=== PATIENT | male | born 1950 | race Caucasian/White ===

== ENCOUNTER 2019-01-18 09:04 | Observation (INO) | payer MEDICARE, OTHER ==
[~2019-01-18] VITALS: Ht 180.3 cm; Wt 80.0 kg
[~2019-01-18 09:04] MED LIST: ACET-2615 PO; ASPI-1 PO; ATOR20TA66 PO; CITA20TA28 PO; DULO-31 PO; GABA-532 PO
[2019-01-18] MEDS ORDERED: normal saline 1000ml 1,000 ML IV ONE (09:35)
[2019-01-18] MEDS ORDERED: proCHLORperazine 10 MG/2 ml inj IV ONE (09:35)
[2019-01-18 10:09] LABS: BASOPHILS # (AUTO) 0.1 X10'3 (0-0.2); MONOCYTES # (AUTO) 1.9 X10'3 (0-0.9)
[2019-01-18 10:10] LABS: BASOPHILS % (AUTO) 0.4 % (0-1); EOSINOPHILS % (AUTO) 0 % (0-6); LYMPHOCYTES # (AUTO) 0.8 X10'3 (1.1-4.8); LYMPHOCYTES % (AUTO) 2.9 % (21-51); MEAN CORPUSCULAR HEMOGLOBIN 30.9 PG (27.0-31.0); MEAN CORPUSCULAR HGB CONC 34.3 g/dL (33.0-36.5); MEAN PLATELET VOLUME 7.4 FL (7.4-10.4); MONOCYTES % (AUTO) 6.6 % (2-12); NEUTROPHILS # (AUTO) 25.3 X10'3 (1.8-7.7); NEUTROPHILS % (AUTO) 90.1 % (42-75); PLATELET COUNT 296 X10'3 (140-440); RED BLOOD COUNT 5.89 X10'6 (4.70-6.10); RED CELL DISTRIBUTION WIDTH 13.9 % (11.5-14.5)
[2019-01-18 10:15] LABS: HEMOGLOBIN 18.2 g/dl (14.0-17.9); WHITE BLOOD COUNT 28.1 X10'3 (4.5-11.0)
[2019-01-18] MEDS ORDERED: normal saline 1000ML IV soln IV ONE (10:25)
[2019-01-18 10:27] LABS: ALANINE AMINOTRANSFERASE 25 U/L (12-78); ALBUMIN 4.1 G/DL (3.4-5.0); ALBUMIN/GLOBULIN RATIO 1.1 (1.1-1.5); ALKALINE PHOSPHATASE 53 IU/L (46-116); ANION GAP 11 (8-16); ASPARTATE AMINO TRANSFERASE 24 U/L (10-37); BLOOD UREA NITROGEN 30 MG/DL (7-18); BUN/CREATININE RATIO 23.8 (5.4-32.0); CALCIUM 9.9 MG/DL (8.5-10.1); CHLORIDE 103 MMOL/L (99-107); CREATININE 1.26 MG/DL (0.60-1.10); GLUCOSE 119 MG/DL (70-104); LIPASE 69 U/L (73-393); POTASSIUM 3.9 MMOL/L (3.5-5.1); SODIUM 144 MMOL/L (135-145); TOTAL CARBON DIOXIDE 29.6 MMOL/L (24-32); TOTAL PROTEIN 7.8 G/DL (6.4-8.2); eGFR 57 ML/MIN
--- NOTE | 2019-01-18 10:38 | NUR ---
PT GETTING CHEST XRAY IN ROOM. ISOLATION IN PLACE FOR DROPLET
[2019-01-18 10:43] LABS: CLARITY,URINE CLEAR (Clear); COLOR,URINE YELLOW (Yellow); GLUCOSE, URINE NEGATIVE (Neg); KETONES,URINE 15 mg/dl (Neg); LEUKOCYTE ESTERASE ,URINE NEGATIVE (Neg); NITRITES, URINE NEGATIVE (Neg); OCCULT BLOOD,URINE MODERATE (Neg); PROTEIN,URINE 100 mg/dl (Neg)
[2019-01-18 10:44] LABS: UA COLLECTION TYPE CLN CATCH MIDSTREAM
[2019-01-18 10:51] LABS: MUCUS STRANDS MODERATE /LPF (Neg); SQUAMOUS EPITHELIAL CELL,UR FEW /LPF (FEW); WBC,URINE 0-4 /HPF (0-4)
[2019-01-18 10:55] LABS: AMORPHOUS PHOSPHATES 1+; BACTERIA,URINE FEW /HPF (Neg)
[2019-01-18 10:56] LABS: TRANSITIONAL EPI CELLS,URINE FEW /HPF
[2019-01-18 11:02] LABS: TOTAL CELLS COUNTED 100
[2019-01-18 11:03] LABS: PLATELET ESTIMATE NORMAL
[2019-01-18] MEDS ORDERED: pantoprazole IV 80 MG in normal saline 100ml IV soln 100 ML IV ONE ×4 (11:20)
[2019-01-18] MEDS ORDERED: pantoprazole 40 MG vial IV ONE (11:30)
[2019-01-18] MEDS ORDERED: potassium CL 10mEq/100ml bag 100 ML IV PRN ×2 (11:45)
[2019-01-18] MEDS ORDERED: magnesium 4gm in 100ml NS 100 ML IV PRN (11:45)
[2019-01-18] MEDS ORDERED: magnesium 2GM in 50ml NS 50 ML IV PRN (11:45)
[2019-01-18] MEDS ORDERED: acetaminophen 650mg rectal suppository RC PRN (11:45)
[2019-01-18] MEDS ORDERED: potassium Cl 20 mEq SR tablet PO PRN (11:45)
[2019-01-18] MEDS ORDERED: ondansetron/PF 4mg/2ml inj IV PRN (11:45)
[2019-01-18] MEDS ORDERED: magnesium Cl slow-release 64mg tablet PO PRN (11:45)
--- NOTE | 2019-01-18 12:31 | NUR ---
Received report from JOSUE Fermin. Awaiting patient.
[2019-01-18] MEDS ORDERED: FLO0.4C PO (12:45)
[2019-01-18] MEDS ORDERED: GABA-532 PO (12:45)
[2019-01-18] MEDS ORDERED: SILD100T PO (12:49)
[2019-01-18] MEDS ORDERED: AMLO5TAB PO (12:52)
--- NOTE | 2019-01-18 13:08 | NUR ---
Patient arrived to floor. VSS. No complaints.
[2019-01-18 13:10] VITALS: BP 182/73
[2019-01-18] MEDS: pantoprazole 40 MG vial IV SCH (15:14)
[2019-01-18] MEDS: normal saline 1000ml 1,000 ML IV SCH (15:14)
--- NOTE | 2019-01-18 15:33 | NUR ---
Paged regarding ETOH protocol. Awaiting call back
[2019-01-18] MEDS ORDERED: LORazepam 1 MG tablet PO PRN (15:40)
[2019-01-18] MEDS ORDERED: thiamine inj. 100 MG in normal saline 100ml IV soln 100 ML IV ONE (15:40)
[2019-01-18] MEDS ORDERED: mag hydrox/Alum hydrox/simeth 30ml oral suspension PO PRN (15:40)
[2019-01-18] MEDS: MVI, adult No.4 with vit. K 10 ML in dextrose 5% water 500ml 490 ML IV SCH ×2 (17:02)
[2019-01-18 18:00] VITALS: BP 177/92
--- NOTE | 2019-01-18 18:35 | NUR ---
Problems reprioritized. Patient report given, questions answered & plan of care reviewed with JOSUE Cruz.
[2019-01-18] MEDS: tamsulosin 0.4mg capsule PO SCH (18:46)
[2019-01-18] MEDS: duloxetine 30mg CAPSULE.DR PO SCH (18:46)
[2019-01-18] MEDS: folic acid inj. 2 MG, thiamine inj. 100 MG in dextrose 5% water 500ml 500 ML IV SCH (18:48)
--- NOTE | 2019-01-18 19:33 | NUR ---
Patient in room [facility]. I have received report from JOSUE Fermin and had the opportunity to ask questions and assume patient care. Addendum: 01/18/19 at 1933 by Tracie Bear RN Amended: Links added.
[2019-01-18] MEDS ORDERED: acetaminophen 325mg tablet PO PRN (21:00)
[2019-01-18 23:00] VITALS: BP_SYST 153; BP_SYST 167; BP_DIAS 85; BP_DIAS 88
[2019-01-19] VITALS (11 sets, daily range): BP systolic 132–167; BP diastolic 54–96
[2019-01-19] MEDS: normal saline 1000ml 1,000 ML IV SCH ×3 (00:31→12:41)
[2019-01-19 06:31] LABS: BASOPHILS # (AUTO) 0.1 X10'3 (0-0.2); BASOPHILS % (AUTO) 0.4 % (0-1); EOSINOPHILS % (AUTO) 0.3 % (0-6); HEMATOCRIT 39.2 % (42.0-52.0); HEMOGLOBIN 13.4 g/dl (14.0-17.9); LYMPHOCYTES % (AUTO) 7.1 % (21-51); MEAN CORPUSCULAR HEMOGLOBIN 30.9 PG (27.0-31.0); MEAN CORPUSCULAR HGB CONC 34.1 g/dL (33.0-36.5); MEAN CORPUSCULAR VOLUME 90.9 FL (78-98); MEAN PLATELET VOLUME 7.6 FL (7.4-10.4); MONOCYTES % (AUTO) 7.3 % (2-12); NEUTROPHILS # (AUTO) 12.1 X10'3 (1.8-7.7); NEUTROPHILS % (AUTO) 84.9 % (42-75); PLATELET COUNT 215 X10'3 (140-440); RED BLOOD COUNT 4.32 X10'6 (4.70-6.10); RED CELL DISTRIBUTION WIDTH 13.2 % (11.5-14.5); WHITE BLOOD COUNT 14.2 X10'3 (4.5-11.0)
--- NOTE | 2019-01-19 06:39 | NUR ---
Problems reprioritized. Patient report given, questions answered & plan of care reviewed with JOSUE Fermin. Addendum: 01/19/19 at 0639 by Tracie Bear RN Amended: Links added.
[2019-01-19 06:44] LABS: ALANINE AMINOTRANSFERASE 31 U/L (12-78); ALBUMIN/GLOBULIN RATIO 1.2 (1.1-1.5); ALKALINE PHOSPHATASE 42 IU/L (46-116); ANION GAP 7 (8-16); ASPARTATE AMINO TRANSFERASE 32 U/L (10-37); BILIRUBIN,TOTAL 1.1 MG/DL (0.1-1.0); BLOOD UREA NITROGEN 22 MG/DL (7-18); CALCIUM 8.1 MG/DL (8.5-10.1); CHLORIDE 110 MMOL/L (99-107); GLUCOSE 100 MG/DL (70-104); MAGNESIUM 1.6 MG/DL (1.5-2.4); PHOSPHORUS 2.2 MG/DL (2.3-4.5); POTASSIUM 3.2 MMOL/L (3.5-5.1); SODIUM 143 MMOL/L (135-145); TOTAL CARBON DIOXIDE 26.3 MMOL/L (24-32); TOTAL PROTEIN 5.5 G/DL (6.4-8.2); eGFR 75 ML/MIN
[2019-01-19] MEDS ORDERED: K and/or MAG REPLACEMENT MC SCH (08:00)
[2019-01-19] MEDS ORDERED: amLODIPine 5mg tablet PO SCH (08:00)
[2019-01-19] MEDS ORDERED: gabapentin 300mg capsule PO SCH (08:00)
[2019-01-19] MEDS: tamsulosin 0.4mg capsule PO SCH (08:16)
[2019-01-19] MEDS: duloxetine 30mg CAPSULE.DR PO SCH (08:17)
[2019-01-19] MEDS: pantoprazole 40 MG vial IV SCH (08:17)
[2019-01-19] MEDS: folic acid inj. 2 MG, thiamine inj. 100 MG in dextrose 5% water 500ml 500 ML IV SCH (08:17)
[2019-01-19] MEDS: potassium Cl 20 mEq SR tablet PO PRN ×2 (08:27→15:17)
[2019-01-19] MEDS: MVI, adult No.4 with vit. K 10 ML in dextrose 5% water 500ml 490 ML IV SCH ×2 (09:24)
[2019-01-19 14:04] LABS: URINE AMPHETAMINE SCREEN NEGATIVE (Neg); URINE BARBITUATE SCREEN NEGATIVE (Neg); URINE BENZODIAZEPINES SCREEN NEGATIVE (Neg); URINE CANNABINOID SCREEN NEGATIVE (Neg); URINE COCAINE SCREEN NEGATIVE (Neg); URINE METHADONE SCREEN NEGATIVE (Neg); URINE OPIATE SCREEN NEGATIVE (Neg); URINE PHENCYCLIDINE SCREEN NEGATIVE (Neg)
--- NOTE | 2019-01-19 14:15 | NUR ---
Neuro nurse at bedside
--- NOTE | 2019-01-19 17:56 | NUR ---
Report called to JOSUE Delcid at neuro/ICU. Patient will be transferred via [facility] to bed [address]. Accept[address] physician dr. Mercado
--- NOTE | 2019-01-19 18:25 | NUR ---
Patient in room [facility]. I have received report from Marlyn Alexandra and had the opportunity to ask questions and assume patient care.
--- NOTE | 2019-01-19 18:30 | NUR ---
Problems reprioritized. Patient report given, questions answered & plan of care reviewed with JOSUE Ramos.
--- NOTE | 2019-01-19 18:35 | NUR ---
EMS here to pick pt up and transport him to [facility] to be monitored by a neuro surgeon. pt denies nausea state she is weak noted barely noticeable slightly right hand weaker than left very slight and feet equal but pt equalibrium off when transfering from [facility] to [facility]. iv saline locked right ac and ns given to emt transporting pt. socks and belongings given to pt to go with him. no complaints at this time.
--- NOTE | 2019-01-19 18:45 | NUR ---
pt left floor with EMT's and belongings report had been called over by Marlyn Alexandra
== END 2019-01-19 18:46 | disposition short-term general hospital (02) ==
LOC: ER 09:05 → SUR 3N 12:42
PROVIDERS: ADMIT Internal Medicine; ATTEND Internal Medicine
DX: R11.2 Nausea with vomiting, unspecified (principal); I10 Essential (primary) hypertension; F32.9 Major depressive disorder, single episode, unspecified; M54.9 Dorsalgia, unspecified; G89.29 Other chronic pain; E86.0 Dehydration; D72.829 Elevated white blood cell count, unspecified; F11.20 Opioid dependence, uncomplicated; Z86.73 Personal history of transient ischemic attack (TIA), and cerebral infarction without residual deficits; I61.4 Nontraumatic intracerebral hemorrhage in cerebellum
CPT/HCPCS: 36415; 70450; 71045; 76700; 80053; 80305; 81001; 82948; 83690; 83735; 84100; 84145; 85025; 85610; 87081; 87502; 87503; 93005; 96361; 96365; 96366; 96368; 96375; 96376; 99284; C9113; G0378; J0780; J2405; J3411; J3490; J7030; J7060

== ENCOUNTER 2019-04-25 12:19 | Emergency (ER) | payer MEDICARE, OTHER ==
[~2019-04-25] VITALS: Ht 180.3 cm; Wt 70.0 kg
[~2019-04-25 12:19] MED LIST changes: +AMLO5TAB PO; -ASPI-1 PO; -ATOR20TA66 PO; -CITA20TA28 PO; +FLO0.4C PO; +SILD100T PO
[2019-04-25] MEDS ORDERED: LIDOcaine 2% 10ml TOPICAL JELLY (Urojet) MM ONE (13:00)
[2019-04-25 13:10] LABS: BASOPHILS % (AUTO) 0.3 % (0-1); EOSINOPHILS # (AUTO) 0.1 X10'3 (0-0.9); HEMATOCRIT 38.8 % (42.0-52.0); HEMOGLOBIN 13.4 g/dl (14.0-17.9); LYMPHOCYTES # (AUTO) 0.7 X10'3 (1.1-4.8); LYMPHOCYTES % (AUTO) 5.3 % (21-51); MEAN CORPUSCULAR HEMOGLOBIN 31.3 PG (27.0-31.0); MEAN CORPUSCULAR HGB CONC 34.5 g/dL (33.0-36.5); MEAN CORPUSCULAR VOLUME 90.5 FL (78-98); MEAN PLATELET VOLUME 6.9 FL (7.4-10.4); MONOCYTES % (AUTO) 7.8 % (2-12); NEUTROPHILS # (AUTO) 11.2 X10'3 (1.8-7.7); NEUTROPHILS % (AUTO) 85.6 % (42-75); PLATELET COUNT 364 X10'3 (140-440); RED BLOOD COUNT 4.28 X10'6 (4.70-6.10); RED CELL DISTRIBUTION WIDTH 14.4 % (11.5-14.5); WHITE BLOOD COUNT 13.1 X10'3 (4.5-11.0)
[2019-04-25 13:25] LABS: ALANINE AMINOTRANSFERASE 29 U/L (12-78); ALBUMIN 3.6 G/DL (3.4-5.0); ALKALINE PHOSPHATASE 61 IU/L (46-116); ANION GAP 9 (8-16); ASPARTATE AMINO TRANSFERASE 18 U/L (10-37); BILIRUBIN,TOTAL 0.9 MG/DL (0.1-1.0); BLOOD UREA NITROGEN 15 MG/DL (7-18); BUN/CREATININE RATIO 10.6 (5.4-32.0); CALCIUM 9.7 MG/DL (8.5-10.1); CHLORIDE 101 MMOL/L (99-107); CREATININE 1.41 MG/DL (0.60-1.10); GLUCOSE 167 MG/DL (70-104); POTASSIUM 3.9 MMOL/L (3.5-5.1); SODIUM 137 MMOL/L (135-145); TOTAL PROTEIN 7.1 G/DL (6.4-8.2); eGFR 50 ML/MIN
[2019-04-25 13:33] LABS: CLARITY,URINE CLOUDY (Clear); COLOR,URINE STRAW (Yellow); GLUCOSE, URINE NEGATIVE (Neg); KETONES,URINE NEGATIVE (Neg); LEUKOCYTE ESTERASE ,URINE LARGE (Neg); NITRITES, URINE POSITIVE (Neg); OCCULT BLOOD,URINE MODERATE (Neg); PROTEIN,URINE 30 mg/dl (Neg); UROBILINOGEN,URINE 0.2 E.U/dL (0.2-1.0)
[2019-04-25 13:38] LABS: UA COLLECTION TYPE FOLEY CATH
[2019-04-25 13:39] LABS: WBC,URINE TNTC /HPF (0-4)
[2019-04-25 13:40] LABS: BACTERIA,URINE 3+ /HPF (Neg); CAL OXALATE CRYSTALS FEW /HPF (NEGATIVE); MUCUS STRANDS NONE SEEN /LPF (Neg); SQUAMOUS EPITHELIAL CELL,UR NONE SEEN /LPF (FEW); WBC CLUMPS,URINE MANY /HPF (NEGATIVE)
[2019-04-25] MEDS ORDERED: CefTRIAXone/D5W-Rocephin 1gm 50 ML IV ONE (13:50)
--- NOTE | 2019-04-25 14:07 | NUR ---
Per provider no need for blood cultures at this time.
[2019-04-25] MEDS ORDERED: PHEN-824 PO (15:45)
[2019-04-25] MEDS ORDERED: CEPH-572 PO (15:45)
[2019-04-25 16:35] VITALS: BP 133/71
== END 2019-04-25 16:36 | disposition home or self-care (01) ==
LOC: ER 12:20
DX: N39.0 Urinary tract infection, site not specified (principal); I10 Essential (primary) hypertension; G89.29 Other chronic pain; Z86.73 Personal history of transient ischemic attack (TIA), and cerebral infarction without residual deficits; Z98.890 Other specified postprocedural states; Z79.899 Other long term (current) drug therapy
CPT/HCPCS: 36415; 80053; 81001; 83605; 84145; 85025; 87077; 87088; 87186; 96365; 99283; J0696

== ENCOUNTER 2019-05-14 08:22 | Inpatient (IN) | payer MEDICARE, OTHER ==
[~2019-05-14] VITALS: Ht 180.3 cm; Wt 70.0 kg
[~2019-05-14 08:22] MED LIST changes: +PHEN-824 PO
[2019-05-14] MEDS ORDERED: normal saline 1000ML IV soln IVB ONE (08:25)
[2019-05-14 09:00] LABS: CLARITY,URINE CLOUDY (Clear); COLOR,URINE YELLOW (Yellow); GLUCOSE, URINE NEGATIVE (Neg); KETONES,URINE NEGATIVE (Neg); LEUKOCYTE ESTERASE ,URINE MODERATE (Neg); NITRITES, URINE POSITIVE (Neg); OCCULT BLOOD,URINE MODERATE (Neg); PROTEIN,URINE 30 mg/dl (Neg); UROBILINOGEN,URINE 0.2 E.U/dL (0.2-1.0)
--- NOTE | 2019-05-14 09:00 | NUR ---
pt came in with ems covered in stool. pt was cleaned up and placed in isolation for poss c-diff
[2019-05-14 09:08] LABS: UA COLLECTION TYPE FOLEY CATH
[2019-05-14 09:16] LABS: BACTERIA,URINE 4+ /HPF (Neg); WBC,URINE TNTC /HPF (0-4)
[2019-05-14 09:17] LABS: AMORPHOUS URATES 2+; CAL OXALATE CRYSTALS 1+ /HPF (NEGATIVE); MUCUS STRANDS FEW /LPF (Neg); SQUAMOUS EPITHELIAL CELL,UR NONE SEEN /LPF (FEW)
[2019-05-14 09:19] LABS: CALCIUM PHOSPHATE CRYSTALS,UR 3+ /HPF (NEGATIVE)
[2019-05-14 09:20] LABS: HYALINE CASTS 0-3 /LPF (NEGATIVE)
[2019-05-14 09:24] LABS: BASOPHILS % (AUTO) 0.1 % (0-1); EOSINOPHILS # (AUTO) 0.1 X10'3 (0-0.9); EOSINOPHILS % (AUTO) 0.3 % (0-6); HEMOGLOBIN 13.8 g/dl (14.0-17.9); LYMPHOCYTES # (AUTO) 0.7 X10'3 (1.1-4.8); LYMPHOCYTES % (AUTO) 3.9 % (21-51); MEAN CORPUSCULAR HEMOGLOBIN 30.8 PG (27.0-31.0); MEAN CORPUSCULAR HGB CONC 34.4 g/dL (33.0-36.5); MEAN CORPUSCULAR VOLUME 89.6 FL (78-98); MONOCYTES # (AUTO) 1.4 X10'3 (0-0.9); MONOCYTES % (AUTO) 7.4 % (2-12); NEUTROPHILS # (AUTO) 17.1 X10'3 (1.8-7.7); NEUTROPHILS % (AUTO) 88.3 % (42-75); PLATELET COUNT 281 X10'3 (140-440); RED BLOOD COUNT 4.47 X10'6 (4.70-6.10); RED CELL DISTRIBUTION WIDTH 14.3 % (11.5-14.5); WHITE BLOOD COUNT 19.4 X10'3 (4.5-11.0)
[2019-05-14] MEDS ORDERED: metroNIDAZOLE 500mg tablet PO ONE (09:55)
[2019-05-14] MEDS ORDERED: ciprofloxacin 250mg tablet PO ONE (09:55)
[2019-05-14 10:06] LABS: ALANINE AMINOTRANSFERASE 28 U/L (12-78); ALBUMIN 3.4 G/DL (3.4-5.0); ALKALINE PHOSPHATASE 62 IU/L (46-116); ANION GAP 6 (8-16); ASPARTATE AMINO TRANSFERASE 38 U/L (10-37); BILIRUBIN,TOTAL 0.6 MG/DL (0.1-1.0); BLOOD UREA NITROGEN 22 MG/DL (7-18); BUN/CREATININE RATIO 20.4 (5.4-32.0); CALCIUM 9.2 MG/DL (8.5-10.1); CHLORIDE 102 MMOL/L (99-107); CREATININE 1.08 MG/DL (0.60-1.10); GLUCOSE 108 MG/DL (70-104); LIPASE 109 U/L (73-393); POTASSIUM 3.4 MMOL/L (3.5-5.1); SODIUM 135 MMOL/L (135-145); TOTAL CARBON DIOXIDE 26.6 MMOL/L (24-32); TOTAL PROTEIN 6.9 G/DL (6.4-8.2); eGFR 68 ML/MIN
[2019-05-14] MEDS ORDERED: normal saline 1000ML IV soln IV ONE (10:20)
[2019-05-14] MEDS ORDERED: piperacillin/tazo 3.375gm/50ml 50 ML IV ONE (10:20)
[2019-05-14] MEDS: normal saline 1000ml 1,000 ML IV SCH ×2 (10:22→20:22)
[2019-05-14] MEDS ORDERED: HYDROcodone/acetaminophen 5mg/325mg tablet PO PRN (10:25)
[2019-05-14] MEDS ORDERED: magnesium 4gm in 100ml NS 100 ML IV PRN (10:25)
[2019-05-14] MEDS ORDERED: magnesium hydroxide 30ml (MOM) UD suspension PO PRN (10:25)
[2019-05-14] MEDS ORDERED: acetaminophen 650mg rectal suppository RC PRN (10:25)
[2019-05-14] MEDS ORDERED: potassium Cl 20 mEq SR tablet PO PRN (10:25)
[2019-05-14] MEDS ORDERED: HYDROcodone/acetaminophen 10/325mg tab PO PRN (10:25)
[2019-05-14] MEDS ORDERED: acetaminophen 325mg tablet PO PRN (10:25)
[2019-05-14] MEDS ORDERED: ondansetron/PF 4mg/2ml inj IV PRN (10:25)
[2019-05-14] MEDS ORDERED: metoclopramide 5 mg/ml inj IV PRN (10:25)
[2019-05-14] MEDS ORDERED: magnesium 2GM in 50ml NS 50 ML IV PRN (10:25)
[2019-05-14] MEDS ORDERED: potassium CL 10mEq/100ml bag 100 ML IV PRN ×2 (10:25)
[2019-05-14] MEDS ORDERED: mag hydrox/Alum hydrox/simeth 30ml oral suspension PO PRN (10:25)
[2019-05-14] MEDS: VANCOMYCIN 1gm/H2O 200ml PB 200 ML IV SCH ×2 (11:06→22:22)
--- NOTE | 2019-05-14 15:27 | NUR ---
PT HAS NOT HAD ANY DIARRHEA SINCE COMING IN
[2019-05-14] MEDS: piperacillin/tazo 3.375gm/50ml 50 ML IV SCH (16:18)
--- NOTE | 2019-05-14 16:54 | NUR ---
paul son is to be called for any concern. and have been seperated for 5 years. she is currently in [facility]
[2019-05-14 17:50] VITALS: BP 116/81
[2019-05-14] MEDS: K and/or MAG REPLACEMENT MC SCH (19:47)
[2019-05-14 20:06] LABS: MAGNESIUM 1.7 MG/DL (1.5-2.4)
[2019-05-14] MEDS ORDERED: temazepam 15mg capsule PO PRN (21:00)
[2019-05-14] MEDS: potassium Cl 20 mEq SR tablet PO PRN (21:08)
[2019-05-14] MEDS: acetaminophen 325mg tablet PO PRN (21:15)
[2019-05-14 22:00] VITALS: BP 125/77
--- NOTE | 2019-05-14 22:35 | NUR ---
attempted to obtain stool sample. lab informed we need 1/2 cup of stool for cdiff sample. lab rejected sample. will attempt tog et more stool. noted pt has opening on coccyx. picture taken, clream applied. small slit opening in crack.
[2019-05-15] MEDS: piperacillin/tazo 3.375gm/50ml 50 ML IV SCH ×3 (00:19→17:00)
[2019-05-15] MEDS: normal saline 1000ml 1,000 ML IV SCH ×3 (04:47→23:26)
[2019-05-15 06:00] VITALS: BP 126/72
--- NOTE | 2019-05-15 06:07 | NUR ---
(rosalba) is JOSUE Nelson on the stroke team here. She is POA for healthcare - but she is currently in [facility]. She called this am and informed me that Avel will be making decisions since she cannot be called, only she can call us. She is adamant that patient does not get transferred to [place]. PT has home health nurse three times a week and an aid three times a week already set up at home currently. Pt also had appointment with Dr. Butterfield yesterday to do a trial foleyl remove and void, which he has had every month and failed, but yesterday was the time to attempt again. Will have day RN notify Dr. Butterfield office of missed appointment and notify hospitalist of recommendations.
--- NOTE | 2019-05-15 06:38 | NUR ---
reported to days. noted pt resting - stool sample pending and need to contact MD about cuellar removal and void trail.
[2019-05-15 06:44] LABS: ALANINE AMINOTRANSFERASE 23 U/L (12-78); ALBUMIN 2.6 G/DL (3.4-5.0); ALKALINE PHOSPHATASE 46 IU/L (46-116); ANION GAP 7 (8-16); ASPARTATE AMINO TRANSFERASE 23 U/L (10-37); BILIRUBIN,TOTAL 0.6 MG/DL (0.1-1.0); BLOOD UREA NITROGEN 11 MG/DL (7-18); CALCIUM 8.1 MG/DL (8.5-10.1); CHLORIDE 108 MMOL/L (99-107); CREATININE 0.92 MG/DL (0.60-1.10); GLUCOSE 89 MG/DL (70-104); MAGNESIUM 1.4 MG/DL (1.5-2.4); POTASSIUM 3.5 MMOL/L (3.5-5.1); SODIUM 141 MMOL/L (135-145); TOTAL PROTEIN 5.3 G/DL (6.4-8.2); eGFR 82 ML/MIN
[2019-05-15 07:19] LABS: BASOPHILS % (AUTO) 0.4 % (0-1); EOSINOPHILS # (AUTO) 0.1 X10'3 (0-0.9); EOSINOPHILS % (AUTO) 1.2 % (0-6); HEMATOCRIT 33.2 % (42.0-52.0); HEMOGLOBIN 11.4 g/dl (14.0-17.9); LYMPHOCYTES # (AUTO) 1.1 X10'3 (1.1-4.8); LYMPHOCYTES % (AUTO) 10.3 % (21-51); MEAN CORPUSCULAR HEMOGLOBIN 31.3 PG (27.0-31.0); MEAN CORPUSCULAR HGB CONC 34.5 g/dL (33.0-36.5); MEAN CORPUSCULAR VOLUME 90.7 FL (78-98); MEAN PLATELET VOLUME 6.7 FL (7.4-10.4); MONOCYTES # (AUTO) 1.2 X10'3 (0-0.9); MONOCYTES % (AUTO) 11.6 % (2-12); NEUTROPHILS # (AUTO) 7.8 X10'3 (1.8-7.7); NEUTROPHILS % (AUTO) 76.5 % (42-75); PLATELET COUNT 217 X10'3 (140-440); RED BLOOD COUNT 3.65 X10'6 (4.70-6.10); RED CELL DISTRIBUTION WIDTH 14.2 % (11.5-14.5); WHITE BLOOD COUNT 10.2 X10'3 (4.5-11.0)
[2019-05-15] MEDS: K and/or MAG REPLACEMENT MC SCH ×2 (08:00→19:38)
[2019-05-15] MEDS ORDERED: FLU VACC QS2019-20 36MOS UP/PF 60 MCG/0.5 ML SYRINGE IMVAC ONE (10:00)
[2019-05-15] MEDS: enoxaparin 40mg/0.4ml syringe SUBCUT SCH (10:28)
[2019-05-15] MEDS: magnesium Cl slow-release 64mg tablet PO PRN ×2 (10:28→20:23)
[2019-05-15 10:33] LABS: C DIFF ANTIGEN NEGATIVE (NEGATIVE); C DIFF SPECIMEN=DIARRHEA? ACCEPTABLE; C DIFFICILE TOXINS A&B NEGATIVE (Neg)
[2019-05-15 10:39] VITALS: BP 121/73
--- NOTE | 2019-05-15 12:30 | NUR ---
cuellar catheter removed per Dr. Gomez.
[2019-05-15] MEDS: VANCOMYCIN 1gm/H2O 200ml PB 200 ML IV SCH ×2 (12:37→23:27)
--- NOTE | 2019-05-15 16:23 | NUR ---
Paged Dr. Gomez "start home dose of Flomax?" RN asked MD earlier if he wanted to restart home meds, MD stated yes but no orders currently placed. Addendum: 05/15/19 at 1752 by Divya Cuellar RN No reply from about Flomax. Pt had not urinated 4 hrs post cuellar removal. bladder scan showed 600 ml of urine. Pt straight cath'd per Dr. Gomez and 600ml of urine out. Pt tolerated well.
[2019-05-15 18:00] VITALS: BP 128/67
[2019-05-15] MEDS ORDERED: loperamide 2mg capsule PO PRN (18:30)
[2019-05-15] MEDS: tamsulosin 0.4mg capsule PO SCH (20:23)
[2019-05-15] MEDS: acetaminophen 325mg tablet PO PRN (20:24)
[2019-05-15] MEDS ORDERED: amLODIPine 5mg tablet PO SCH (21:00)
--- NOTE | 2019-05-15 21:28 | NUR ---
BLADDER SCANNED 200ML,PT DENIES PRESSURE AROUND PUBIS AREA.
[2019-05-15 22:00] VITALS: BP 104/56
[2019-05-15] MEDS ORDERED: VANCOMYCIN LEVEL IV ONE (22:30)
--- NOTE | 2019-05-15 23:00 | NUR ---
pt refused cath at this time. "I just want to keep trying"
[2019-05-16] MEDS: piperacillin/tazo 3.375gm/50ml 50 ML IV SCH ×2 (00:59→08:14)
--- NOTE | 2019-05-16 02:00 | NUR ---
pt feels pressure. attempted to void in bathroom. agreed to st cath at this time. diarrhea also noted - immodium given
--- NOTE | 2019-05-16 02:10 | NUR ---
STILL UNABLE TO URINATE AND FEELS PRESSURE AROUND PUBIS AREA.STRAIGHT CATHED PT,BENJIE PROCEDURE NO COMPLICATIONS NOTED,DRAINED 1000ML CLEAR YELLOW URINE.
[2019-05-16 05:48] VITALS: BP 125/70
[2019-05-16 06:13] LABS: BASOPHILS # (AUTO) 0.1 X10'3 (0-0.2); EOSINOPHILS # (AUTO) 0.2 X10'3 (0-0.9); EOSINOPHILS % (AUTO) 2.7 % (0-6); HEMATOCRIT 31.6 % (42.0-52.0); HEMOGLOBIN 11.3 g/dl (14.0-17.9); LYMPHOCYTES # (AUTO) 1.4 X10'3 (1.1-4.8); MEAN CORPUSCULAR HEMOGLOBIN 31.9 PG (27.0-31.0); MEAN CORPUSCULAR HGB CONC 35.6 g/dL (33.0-36.5); MEAN CORPUSCULAR VOLUME 89.4 FL (78-98); MEAN PLATELET VOLUME 7.1 FL (7.4-10.4); MONOCYTES # (AUTO) 0.8 X10'3 (0-0.9); MONOCYTES % (AUTO) 13.4 % (2-12); NEUTROPHILS # (AUTO) 3.4 X10'3 (1.8-7.7); NEUTROPHILS % (AUTO) 58.9 % (42-75); PLATELET COUNT 239 X10'3 (140-440); RED BLOOD COUNT 3.54 X10'6 (4.70-6.10); RED CELL DISTRIBUTION WIDTH 14.1 % (11.5-14.5); WHITE BLOOD COUNT 5.7 X10'3 (4.5-11.0)
--- NOTE | 2019-05-16 06:29 | NUR ---
reported to days. noted pt resting - will work with PT and then attempt to void. day RN ready for bladder scan after void and insertion of cuellar if unable to void.
[2019-05-16 06:41] LABS: ALANINE AMINOTRANSFERASE 21 U/L (12-78); ALBUMIN 2.6 G/DL (3.4-5.0); ALKALINE PHOSPHATASE 42 IU/L (46-116); ANION GAP 5 (8-16); ASPARTATE AMINO TRANSFERASE 17 U/L (10-37); BILIRUBIN,TOTAL 0.4 MG/DL (0.1-1.0); BLOOD UREA NITROGEN 7 MG/DL (7-18); BUN/CREATININE RATIO 7.4 (5.4-32.0); CALCIUM 8.4 MG/DL (8.5-10.1); CHLORIDE 110 MMOL/L (99-107); CREATININE 0.94 MG/DL (0.60-1.10); GLUCOSE 86 MG/DL (70-104); MAGNESIUM 1.5 MG/DL (1.5-2.4); PHOSPHORUS 2.5 MG/DL (2.3-4.5); POTASSIUM 3.1 MMOL/L (3.5-5.1); SODIUM 144 MMOL/L (135-145); TOTAL CARBON DIOXIDE 28.8 MMOL/L (24-32); TOTAL PROTEIN 5.3 G/DL (6.4-8.2); eGFR 80 ML/MIN
--- NOTE | 2019-05-16 07:06 | NUR ---
Pt moaning with pain in bladder, feels like his bladder is very full but unable to void. Bladder scanned pt and scan showed 875mL urine. Cuellar placed per order from Dr. Gomez d/t pt has been straight cathed twice since cuellar removal yesterday and still unable to void on his own. Pt tolerated cath placement well and felt relief once urine was drained. Cath went into position easily. 800 ml of clear, light yellow, urine drained and bladder continuing to drain.
[2019-05-16] MEDS: K and/or MAG REPLACEMENT MC SCH (07:17)
[2019-05-16] MEDS ORDERED: duloxetine 30mg CAPSULE.DR PO SCH (08:00)
[2019-05-16] MEDS ORDERED: amLODIPine 5mg tablet PO SCH (08:00)
[2019-05-16] MEDS ORDERED: tamsulosin 0.4mg capsule PO SCH (08:00)
[2019-05-16] MEDS: potassium Cl 20 mEq SR tablet PO PRN (08:10)
[2019-05-16] MEDS: tamsulosin 0.4mg capsule PO SCH (08:10)
[2019-05-16] MEDS: enoxaparin 40mg/0.4ml syringe SUBCUT SCH (08:11)
--- NOTE | 2019-05-16 09:32 | NUR ---
Dr. Gomez came to see pt earlier and stated ok for pt to d/c today. Was previously questionable whether pt would d/c to home or rehab. RN paged Dr. Gomez and stated electrical discharge machine operator spoke to and pt can d/c to home, has walker and resources at home. Will need to re-order home health through [facility] before d/c.
[2019-05-16 09:58] VITALS: BP 115/69
[2019-05-16] MEDS ORDERED: METH1TAB32 PO (10:00)
[2019-05-16] MEDS ORDERED: VANCOmycin 1250MG/NS 250ml Bag 250 ML IV SCH (11:00)
--- NOTE | 2019-05-16 14:09 | NUR ---
page to Dr. Gomez - wanted to clarify, pt WILL be discharged home with cuellar in place. Pts son to pick him up within the hour. Addendum: 05/16/19 at 1409 by Divya Cuellar RN Md called back, pt will be going home with cuellar.
[2019-05-17] MEDS ORDERED: VANCOMYCIN LEVEL IV ONE (22:30)
== END 2019-05-16 15:20 | disposition home health service (06) | DRG 372 ==
LOC: ER 08:23 → ED HOLD 10:22 → ORTHO 4S 17:45
PROVIDERS: ADMIT Family Medicine; ATTEND Family Medicine
DX: A04.9 Bacterial intestinal infection, unspecified (principal); N39.0 Urinary tract infection, site not specified; Z16.24 Resistance to multiple antibiotics; N13.8 Other obstructive and reflux uropathy; B96.5 Pseudomonas (aeruginosa) (mallei) (pseudomallei) as the cause of diseases classified elsewhere; E86.0 Dehydration; E87.6 Hypokalemia; I10 Essential (primary) hypertension; N40.1 Benign prostatic hyperplasia with lower urinary tract symptoms; G89.29 Other chronic pain; M54.9 Dorsalgia, unspecified; F32.9 Major depressive disorder, single episode, unspecified; Z86.73 Personal history of transient ischemic attack (TIA), and cerebral infarction without residual deficits; Z23 Encounter for immunization
CPT/HCPCS: 36415; 80053; 80202; 81001; 83690; 83735; 84100; 85025; 87045; 87046; 87077; 87081; 87088; 87186; 87324; 87449; 89055; 97161; 97530; 99285; G0378; J1650; J2543; J3370; J3490; J7030; Q2037

== ENCOUNTER 2019-05-23 12:22 | Emergency (ER) | payer MEDICARE, OTHER ==
[~2019-05-23] VITALS: Ht 180.3 cm; Wt 68.2 kg
[~2019-05-23 12:22] MED LIST changes: +METH1TAB32 PO; -PHEN-824 PO
[2019-05-23] MEDS ORDERED: ringers solution, lacted 1,000 ML IV ONE (15:45)
--- NOTE | 2019-05-23 16:00 | NUR ---
GASTROCULT AND HEMOCULT SET UP AT BEDSIDE
--- NOTE | 2019-05-23 16:15 | NUR ---
ATTEMPTED IV WITHOUT SUCCESS. PICC RN PAGED.
[2019-05-23 16:24] LABS: BASOPHILS % (AUTO) 0.1 % (0-1); EOSINOPHILS % (AUTO) 0.2 % (0-6); HEMATOCRIT 39.7 % (42.0-52.0); HEMOGLOBIN 13.5 g/dl (14.0-17.9); LYMPHOCYTES # (AUTO) 1.1 X10'3 (1.1-4.8); LYMPHOCYTES % (AUTO) 6.4 % (21-51); MEAN CORPUSCULAR HEMOGLOBIN 30.5 PG (27.0-31.0); MEAN CORPUSCULAR HGB CONC 33.9 g/dL (33.0-36.5); MEAN CORPUSCULAR VOLUME 89.7 FL (78-98); MEAN PLATELET VOLUME 6.9 FL (7.4-10.4); MONOCYTES # (AUTO) 1.1 X10'3 (0-0.9); MONOCYTES % (AUTO) 6.5 % (2-12); NEUTROPHILS # (AUTO) 14.7 X10'3 (1.8-7.7); NEUTROPHILS % (AUTO) 86.8 % (42-75); PLATELET COUNT 367 X10'3 (140-440); RED BLOOD COUNT 4.42 X10'6 (4.70-6.10); RED CELL DISTRIBUTION WIDTH 14.1 % (11.5-14.5); WHITE BLOOD COUNT 16.9 X10'3 (4.5-11.0)
[2019-05-23 16:45] LABS: ALANINE AMINOTRANSFERASE 44 U/L (12-78); ALBUMIN 3.5 G/DL (3.4-5.0); ALKALINE PHOSPHATASE 55 IU/L (46-116); ANION GAP 8 (8-16); ASPARTATE AMINO TRANSFERASE 15 U/L (10-37); BILIRUBIN,TOTAL 0.5 MG/DL (0.1-1.0); BLOOD UREA NITROGEN 17 MG/DL (7-18); BUN/CREATININE RATIO 14.3 (5.4-32.0); CALCIUM 9.3 MG/DL (8.5-10.1); CHLORIDE 103 MMOL/L (99-107); CREATININE 1.19 MG/DL (0.60-1.10); GLUCOSE 99 MG/DL (70-104); POTASSIUM 4.2 MMOL/L (3.5-5.1); SODIUM 140 MMOL/L (135-145); TOTAL CARBON DIOXIDE 29.4 MMOL/L (24-32); TOTAL PROTEIN 6.9 G/DL (6.4-8.2); eGFR 61 ML/MIN
[2019-05-23] MEDS ORDERED: iohexol 300mg/ml 100ml inj. ONE (18:02)
--- NOTE | 2019-05-23 18:13 | NUR ---
TO CT FOR ABD WITH CONTRAST VIA W/C
[2019-05-23] MEDS ORDERED: DIPH1TAB PO (20:13)
[2019-05-23] MEDS ORDERED: diphenoxylate/atropine tablet (Lomotil) PO ONE (20:25)
[2019-05-23 20:46] VITALS: BP 145/94
== END 2019-05-23 21:03 | disposition home or self-care (01) ==
LOC: ER 12:22
DX: R19.7 Diarrhea, unspecified (principal); G89.29 Other chronic pain; M54.5 Low back pain; R53.1 Weakness; I10 Essential (primary) hypertension; F32.9 Major depressive disorder, single episode, unspecified; F17.200 Nicotine dependence, unspecified, uncomplicated; F10.99 Alcohol use, unspecified with unspecified alcohol-induced disorder; Z86.73 Personal history of transient ischemic attack (TIA), and cerebral infarction without residual deficits; Z98.890 Other specified postprocedural states; Z79.899 Other long term (current) drug therapy; Y90.9 Presence of alcohol in blood, level not specified
CPT/HCPCS: 36415; 74177; 76937; 80053; 85025; 96360; 96361; 99284; Q9967; J7120

== ENCOUNTER 2019-07-26 12:53 | Emergency (ER) | payer OTHER ==
[~2019-07-26] VITALS: Ht 177.8 cm; Wt 68.2 kg
[~2019-07-26 12:53] MED LIST changes: +DIPH1TAB PO
--- NOTE | 2019-07-26 13:13 | NUR ---
talked with ex , mariella Nelson about pt per pt request. hx updated with "hemorragic stroke, last one in dec., ht, bph, ptsd, dnr, uses walker for ambulation" md ortiz notified of pt hx update, including hem stroke in dec. and dnr.
[2019-07-26] MEDS ORDERED: normal saline 1000ML IV soln IVB ONE (13:45)
[2019-07-26 14:24] LABS: BASOPHILS % (AUTO) 0.3 % (0-1); EOSINOPHILS # (AUTO) 0.1 X10'3 (0-0.9); EOSINOPHILS % (AUTO) 0.4 % (0-6); HEMATOCRIT 41.6 % (42.0-52.0); HEMOGLOBIN 13.7 g/dl (14.0-17.9); LYMPHOCYTES # (AUTO) 0.8 X10'3 (1.1-4.8); LYMPHOCYTES % (AUTO) 5.7 % (21-51); MEAN CORPUSCULAR HEMOGLOBIN 28.9 PG (27.0-31.0); MEAN CORPUSCULAR HGB CONC 32.9 g/dL (33.0-36.5); MEAN CORPUSCULAR VOLUME 87.6 FL (78-98); MONOCYTES # (AUTO) 0.7 X10'3 (0-0.9); MONOCYTES % (AUTO) 4.8 % (2-12); NEUTROPHILS # (AUTO) 13.2 X10'3 (1.8-7.7); NEUTROPHILS % (AUTO) 88.8 % (42-75); PLATELET COUNT 314 X10'3 (140-440); RED BLOOD COUNT 4.74 X10'6 (4.70-6.10); RED CELL DISTRIBUTION WIDTH 14.3 % (11.5-14.5); WHITE BLOOD COUNT 14.8 X10'3 (4.5-11.0)
[2019-07-26 14:36] LABS: ALANINE AMINOTRANSFERASE 19 U/L (12-78); ALBUMIN 3.4 G/DL (3.4-5.0); ALKALINE PHOSPHATASE 70 IU/L (46-116); ANION GAP 7 (8-16); ASPARTATE AMINO TRANSFERASE 14 U/L (10-37); BILIRUBIN,TOTAL 0.4 MG/DL (0.1-1.0); BLOOD UREA NITROGEN 18 MG/DL (7-18); BUN/CREATININE RATIO 15.5 (5.4-32.0); CALCIUM 9.6 MG/DL (8.5-10.1); CHLORIDE 107 MMOL/L (99-107); CREATININE 1.16 MG/DL (0.60-1.10); GLUCOSE 83 MG/DL (70-104); POTASSIUM 3.8 MMOL/L (3.5-5.1); SODIUM 144 MMOL/L (135-145); TOTAL CARBON DIOXIDE 29.8 MMOL/L (24-32); TOTAL PROTEIN 6.8 G/DL (6.4-8.2); eGFR 63 ML/MIN
[2019-07-26 16:51] VITALS: BP 124/78
== END 2019-07-26 16:57 | disposition left against medical advice (07) ==
LOC: ER 12:53
DX: R55 Syncope and collapse (principal); R42 Dizziness and giddiness; I10 Essential (primary) hypertension; G89.29 Other chronic pain; F32.9 Major depressive disorder, single episode, unspecified; Z86.73 Personal history of transient ischemic attack (TIA), and cerebral infarction without residual deficits; Z98.890 Other specified postprocedural states; Z79.899 Other long term (current) drug therapy
CPT/HCPCS: 36415; 70450; 71045; 80053; 83735; 83880; 84484; 85025; 93005; 96360; 99285; J7030

== ENCOUNTER 2019-09-15 17:47 | Emergency (ER) | payer MEDICARE, OTHER ==
[~2019-09-15] VITALS: Ht 182.9 cm; Wt 77.3 kg
[~2019-09-15 17:47] MED LIST changes: -ACET-2615 PO; +CIPR-230 PO; -DIPH1TAB PO; +FINA5TAB11 PO; -GABA-532 PO; +LACT1CAP26 PO; -METH1TAB32 PO; +PHEN-716 PO; +POTA20TA19 PO; -SILD100T PO
--- NOTE | 2019-09-15 18:07 | NUR ---
pt says he has had c-diff in the past and it feels like he has it agian his also thinks he has c-diff he states he has had 3 watey loose stools today
[2019-09-15] MEDS ORDERED: normal saline 1000ML IV soln IVB ONE (18:35)
[2019-09-15 19:00] LABS: BASOPHILS % (AUTO) 0.2 % (0-1); EOSINOPHILS # (AUTO) 0.1 X10'3 (0-0.9); EOSINOPHILS % (AUTO) 1.1 % (0-6); HEMATOCRIT 35.6 % (42.0-52.0); LYMPHOCYTES # (AUTO) 1.3 X10'3 (1.1-4.8); MEAN CORPUSCULAR HEMOGLOBIN 29.5 PG (27.0-31.0); MEAN CORPUSCULAR HGB CONC 33.8 g/dL (33.0-36.5); MEAN CORPUSCULAR VOLUME 87.3 FL (78-98); MEAN PLATELET VOLUME 7.5 FL (7.4-10.4); MONOCYTES # (AUTO) 1.6 X10'3 (0-0.9); MONOCYTES % (AUTO) 13.2 % (2-12); NEUTROPHILS # (AUTO) 8.8 X10'3 (1.8-7.7); NEUTROPHILS % (AUTO) 74.5 % (42-75); PLATELET COUNT 326 X10'3 (140-440); RED BLOOD COUNT 4.08 X10'6 (4.70-6.10); WHITE BLOOD COUNT 11.8 X10'3 (4.5-11.0)
[2019-09-15 19:01] LABS: CLARITY,URINE CLEAR (Clear); COLOR,URINE YELLOW (Yellow); GLUCOSE, URINE NEGATIVE (Neg); KETONES,URINE NEGATIVE (Neg); LEUKOCYTE ESTERASE ,URINE SMALL (Neg); OCCULT BLOOD,URINE TRACE-INTACT (Neg); PH,URINE 6.5 (4.8-8.0); PROTEIN,URINE TRACE mg/dl (Neg)
[2019-09-15 19:08] LABS: BACTERIA,URINE FEW /HPF (Neg); NITRITES, URINE NEGATIVE (Neg); RBC,URINE 0-2 /HPF (0-2); SQUAMOUS EPITHELIAL CELL,UR FEW /LPF (FEW); UA COLLECTION TYPE URINAL
[2019-09-15 19:11] LABS: ALANINE AMINOTRANSFERASE 54 U/L (12-78); ALBUMIN 2.6 G/DL (3.4-5.0); ALBUMIN/GLOBULIN RATIO 0.7 (1.1-1.5); ALKALINE PHOSPHATASE 64 IU/L (46-116); ANION GAP 4 (8-16); ASPARTATE AMINO TRANSFERASE 42 U/L (10-37); BILIRUBIN,TOTAL 0.5 MG/DL (0.1-1.0); BLOOD UREA NITROGEN 11 MG/DL (7-18); BUN/CREATININE RATIO 8.7 (5.4-32.0); CALCIUM 8.8 MG/DL (8.5-10.1); CHLORIDE 106 MMOL/L (99-107); CREATININE 1.26 MG/DL (0.60-1.10); GLUCOSE 107 MG/DL (70-104); LIPASE 488 U/L (73-393); POTASSIUM 3.9 MMOL/L (3.5-5.1); SODIUM 139 MMOL/L (135-145); TOTAL CARBON DIOXIDE 29.5 MMOL/L (24-32); TOTAL PROTEIN 6.4 G/DL (6.4-8.2); eGFR 57 ML/MIN
[2019-09-15] MEDS ORDERED: iohexol 300mg/ml 100ml inj. ONE (20:00)
--- NOTE | 2019-09-15 20:03 | NUR ---
Pt. to CT at this time.
--- NOTE | 2019-09-15 20:18 | NUR ---
Pt. returned to room by interventional radiology tech at this time.
[2019-09-15] MEDS ORDERED: morphine 4 MG/ML inj SYRINge IV ONE (21:05)
[2019-09-15] MEDS ORDERED: HYDR-3965 PO (21:45)
[2019-09-15] MEDS ORDERED: L. R1CAP4 PO (21:45)
--- NOTE | 2019-09-15 21:46 | NUR ---
Called [employer] to set up transportation for pt. to return home. truck driver supervisor set up to be within the next hour.
[2019-09-15 21:56] VITALS: BP 133/71
--- NOTE | 2019-09-15 22:08 | NUR ---
[employer] ETA [id number]
== END 2019-09-15 22:38 | disposition home or self-care (01) ==
LOC: ER 17:48 → ED HOLD 22:25 → ER 22:38
DX: I10 Essential (primary) hypertension (principal); R19.7 Diarrhea, unspecified; G89.29 Other chronic pain; R10.31 Right lower quadrant pain; R10.32 Left lower quadrant pain; R50.9 Fever, unspecified; F32.9 Major depressive disorder, single episode, unspecified; Z72.89 Other problems related to lifestyle; Z86.73 Personal history of transient ischemic attack (TIA), and cerebral infarction without residual deficits; Z79.899 Other long term (current) drug therapy
CPT/HCPCS: 36415; 74177; 80053; 81001; 83690; 84145; 85025; 87088; 96361; 96374; 99285; J2270; J7030; Q9967; G0378

== ENCOUNTER 2023-04-02 07:27 | Inpatient (IN) | payer MEDICARE, OTHER ==
[~2023-04-02] VITALS: Ht 182.9 cm; Wt 73.8 kg
[~2023-04-02 07:27] MED LIST changes: +CIPR-202 PO; -CIPR-230 PO; +L. R1CAP4 PO; +POTA-207 PO; -POTA20TA19 PO
[2023-04-02] MEDS ORDERED: normal saline 1000ML IV soln IVB ONE (08:50)
[2023-04-02 08:56] LABS: BASOPHILS # (AUTO) 0.1 X10'3 (0-0.2); BASOPHILS % (AUTO) 0.5 % (0-1); EOSINOPHILS % (AUTO) 0 % (0-6); HEMATOCRIT 36.5 % (42.0-52.0); HEMOGLOBIN 12.6 g/dl (14.0-17.9); LYMPHOCYTES # (AUTO) 0.6 X10'3 (1.1-4.8); LYMPHOCYTES % (AUTO) 2.7 % (21-51); MEAN CORPUSCULAR HEMOGLOBIN 30.2 PG (27.0-31.0); MEAN CORPUSCULAR HGB CONC 34.6 g/dL (33.0-36.5); MEAN CORPUSCULAR VOLUME 87.4 FL (78-98); MEAN PLATELET VOLUME 7.4 FL (7.4-10.4); MONOCYTES % (AUTO) 9.4 % (2-12); NEUTROPHILS # (AUTO) 18.2 X10'3 (1.8-7.7); NEUTROPHILS % (AUTO) 87.4 % (42-75); PLATELET COUNT 327 X10'3 (140-440); RED BLOOD COUNT 4.17 X10'6 (4.70-6.10); RED CELL DISTRIBUTION WIDTH 13.1 % (11.5-14.5); WHITE BLOOD COUNT 20.9 X10'3 (4.5-11.0)
[2023-04-02 09:10] LABS: ALANINE AMINOTRANSFERASE 13 U/L (12-78); ALBUMIN 3.1 G/DL (3.4-5.0); ALBUMIN/GLOBULIN RATIO 0.7 (1.1-1.5); ALKALINE PHOSPHATASE 80 IU/L (46-116); ANION GAP 8 (8-16); ASPARTATE AMINO TRANSFERASE 23 U/L (10-37); BILIRUBIN,TOTAL 1.2 MG/DL (0.1-1.0); BLOOD UREA NITROGEN 16 MG/DL (7-18); CALCIUM 9.2 MG/DL (8.5-10.1); CHLORIDE 98 MMOL/L (99-107); CREATININE 1.23 MG/DL (0.60-1.10); GLUCOSE 124 MG/DL (70-104); SODIUM 134 MMOL/L (135-145); TOTAL CARBON DIOXIDE 27.8 MMOL/L (24-32); TOTAL PROTEIN 7.5 G/DL (6.4-8.2); eCRCL 58 ML/MIN; eGFR 58 ML/MIN
[2023-04-02 09:32] LABS: PRO BRAIN NATRIURETIC PEPTIDE 675 PG/ML (0-125)
[2023-04-02 09:38] LABS: POTASSIUM 2.8 MMOL/L (3.5-5.1)
[2023-04-02 09:43] LABS: BILIRUBIN,URINE NEGATIVE (Neg); CLARITY,URINE SLIGHTLY CLOUDY (Clear); COLOR,URINE YELLOW (Yellow); GLUCOSE, URINE NEGATIVE (Neg); KETONES,URINE NEGATIVE (Neg); LEUKOCYTE ESTERASE ,URINE SMALL (Neg); NITRITES, URINE POSITIVE (Neg); OCCULT BLOOD,URINE MODERATE (Neg); PH,URINE 6.5 (4.8-8.0); PROTEIN,URINE 30 mg/dl (Neg)
[2023-04-02] MEDS ORDERED: potassium Cl 40MEQ/1/2NS 520ml 520 ML IV ONE (09:45)
[2023-04-02 09:55] LABS: UA COLLECTION TYPE URINAL
[2023-04-02 09:57] LABS: BACTERIA,URINE 3+ /HPF (Neg); MUCUS STRANDS NONE SEEN /LPF (Neg); SQUAMOUS EPITHELIAL CELL,UR FEW /LPF (FEW); WBC CLUMPS,URINE FEW /HPF (NEGATIVE); WBC,URINE 30-50 /HPF (0-4)
[2023-04-02] MEDS ORDERED: CefTRIAXone/D5W-Rocephin 1gm 50 ML IV ONE (10:10)
[2023-04-02] MEDS ORDERED: ondansetron/PF 4mg/2ml inj IV PRN (10:55)
[2023-04-02] MEDS ORDERED: acetaminophen 325mg tablet PO PRN (10:55)
[2023-04-02] MEDS ORDERED: magnesium Cl slow-release 64mg tablet PO PRN (10:55)
[2023-04-02] MEDS ORDERED: magnesium 4gm in 100ml NS 100 ML IV PRN (10:55)
[2023-04-02] MEDS ORDERED: magnesium 2GM in 50ml NS 50 ML IV PRN (10:55)
[2023-04-02] MEDS ORDERED: potassium Cl 40MEQ/1/2NS 520ml 520 ML IV PRN (10:55)
[2023-04-02] MEDS ORDERED: morphine 2 MG/ML inj. syringe IV PRN (10:55)
[2023-04-02] MEDS ORDERED: potassium Cl 20 mEq SR tablet PO PRN (10:55)
[2023-04-02] MEDS ORDERED: HYDROcodone/acetaminophen 5mg/325mg tablet PO PRN (10:55)
[2023-04-02] MEDS: normal saline 1000ml 1,000 ML IV SCH (11:02)
[2023-04-02 19:15] VITALS: BP 150/79; PULSE 92; RESP 18; TEMP 99.9; O2SAT 95
[2023-04-02 20:00] VITALS: RESP 18; O2SAT 94
[2023-04-02] MEDS: enoxaparin 40mg/0.4ml syringe SQ SCH (20:39)
[2023-04-02 22:00] VITALS: BP 171/93; PULSE 89; RESP 18; TEMP 98.1; O2SAT 94
[2023-04-03 00:05] LABS: URINE AMPHETAMINE SCREEN NEGATIVE (Neg); URINE BARBITUATE SCREEN NEGATIVE (Neg); URINE BENZODIAZEPINES SCREEN NEGATIVE (Neg); URINE CANNABINOID SCREEN NEGATIVE (Neg); URINE COCAINE SCREEN NEGATIVE (Neg); URINE METHADONE SCREEN NEGATIVE (Neg); URINE OPIATE SCREEN POSITIVE (Neg); URINE PHENCYCLIDINE SCREEN NEGATIVE (Neg)
[2023-04-03 00:23] LABS: BILIRUBIN,URINE NEGATIVE (Neg); CLARITY,URINE CLEAR (Clear); COLOR,URINE YELLOW (Yellow); GLUCOSE, URINE NEGATIVE (Neg); KETONES,URINE NEGATIVE (Neg); LEUKOCYTE ESTERASE ,URINE TRACE (Neg); NITRITES, URINE NEGATIVE (Neg); OCCULT BLOOD,URINE SMALL (Neg); PH,URINE 7.5 (4.8-8.0); PROTEIN,URINE TRACE mg/dl (Neg); UA COLLECTION TYPE CLN CATCH MIDSTREAM; UROBILINOGEN,URINE >=8.0 E.U/dL (0.2-1.0)
[2023-04-03 00:31] LABS: WBC,URINE 20-30 /HPF (0-4)
[2023-04-03 00:32] LABS: BACTERIA,URINE FEW /HPF (Neg); MUCUS STRANDS NONE SEEN /LPF (Neg); SQUAMOUS EPITHELIAL CELL,UR NONE SEEN /LPF (FEW); WBC CLUMPS,URINE MODERATE /HPF (NEGATIVE)
[2023-04-03] MEDS: normal saline 1000ml 1,000 ML IV SCH ×3 (02:23→15:10)
[2023-04-03] MEDS ORDERED: CYAN500T71 PO (02:43)
[2023-04-03] MEDS ORDERED: ATOR20TA PO (02:43)
[2023-04-03] MEDS ORDERED: FLUO15OI2 TP (02:43)
[2023-04-03 06:02] LABS: BASOPHILS % (AUTO) 0.3 % (0-1); EOSINOPHILS % (AUTO) 0.1 % (0-6); HEMATOCRIT 37.2 % (42.0-52.0); HEMOGLOBIN 12.7 g/dl (14.0-17.9); LYMPHOCYTES # (AUTO) 0.9 X10'3 (1.1-4.8); LYMPHOCYTES % (AUTO) 5.4 % (21-51); MEAN CORPUSCULAR HGB CONC 34.1 g/dL (33.0-36.5); MEAN CORPUSCULAR VOLUME 87.9 FL (78-98); MEAN PLATELET VOLUME 7.6 FL (7.4-10.4); MONOCYTES # (AUTO) 1.7 X10'3 (0-0.9); MONOCYTES % (AUTO) 10.9 % (2-12); NEUTROPHILS # (AUTO) 13.2 X10'3 (1.8-7.7); NEUTROPHILS % (AUTO) 83.3 % (42-75); PLATELET COUNT 314 X10'3 (140-440); RED BLOOD COUNT 4.23 X10'6 (4.70-6.10); RED CELL DISTRIBUTION WIDTH 13.2 % (11.5-14.5); WHITE BLOOD COUNT 15.8 X10'3 (4.5-11.0)
[2023-04-03 06:08] LABS: ALANINE AMINOTRANSFERASE 18 U/L (12-78); ALBUMIN 2.6 G/DL (3.4-5.0); ALBUMIN/GLOBULIN RATIO 0.6 (1.1-1.5); ALKALINE PHOSPHATASE 69 IU/L (46-116); ANION GAP 8 (8-16); ASPARTATE AMINO TRANSFERASE 28 U/L (10-37); BILIRUBIN,TOTAL 0.8 MG/DL (0.1-1.0); BLOOD UREA NITROGEN 13 MG/DL (7-18); CALCIUM 8.5 MG/DL (8.5-10.1); CHLORIDE 101 MMOL/L (99-107); CREATININE 1.08 MG/DL (0.60-1.10); GLUCOSE 113 MG/DL (70-104); SODIUM 135 MMOL/L (135-145); TOTAL CARBON DIOXIDE 25.7 MMOL/L (24-32); TOTAL PROTEIN 6.7 G/DL (6.4-8.2); eCRCL 66 ML/MIN; eGFR 68 ML/MIN
[2023-04-03 07:26] VITALS: BP 170/97; PULSE 110; RESP 20; TEMP 99; O2SAT 96
[2023-04-03 10:00] VITALS: BP 123/72; PULSE 51; RESP 22; TEMP 98.1; O2SAT 93
[2023-04-03] MEDS: CefTRIAXone 2gm/D5W 50ml BAG 50 ML IV SCH (10:07)
[2023-04-03] MEDS: cyanocobalamin 500mcg tablet PO SCH (10:09)
[2023-04-03] MEDS: duloxetine 30mg CAPSULE.DR PO SCH (10:13)
[2023-04-03] MEDS: atorvastatin 20mg tablet PO SCH (10:14)
[2023-04-03] MEDS: tamsulosin 0.4mg capsule PO SCH (10:14)
[2023-04-03] MEDS: finasteride 5mg tablet PO SCH (10:15)
[2023-04-03] MEDS: betamethasone diprop. 0.05% ointment 15gm TP SCH ×2 (10:15→20:51)
[2023-04-03] MEDS ORDERED: LidoCAINE 2% Topical Jelly 11mL syringe MM ONE (10:30)
[2023-04-03 11:32] VITALS: RESP 16
[2023-04-03] MEDS: potassium Cl 20 mEq SR tablet PO PRN ×2 (15:13→20:50)
[2023-04-03 18:00] VITALS: BP 139/77; PULSE 70; RESP 22; TEMP 98.3; O2SAT 94
[2023-04-03] MEDS: enoxaparin 40mg/0.4ml syringe SQ SCH (20:50)
[2023-04-03] MEDS: amLODIPine 5mg tablet PO SCH (20:50)
[2023-04-04] MEDS: potassium Cl 20 mEq SR tablet PO PRN (01:29)
[2023-04-04 06:00] VITALS: BP 111/71; PULSE 71; RESP 18; TEMP 98.2; O2SAT 96
[2023-04-04 06:17] LABS: BASOPHILS # (AUTO) 0.1 X10'3 (0-0.2); BASOPHILS % (AUTO) 0.6 % (0-1); EOSINOPHILS # (AUTO) 0.1 X10'3 (0-0.9); HEMATOCRIT 35.6 % (42.0-52.0); HEMOGLOBIN 12.6 g/dl (14.0-17.9); LYMPHOCYTES # (AUTO) 1.1 X10'3 (1.1-4.8); LYMPHOCYTES % (AUTO) 10.5 % (21-51); MEAN CORPUSCULAR HEMOGLOBIN 30.7 PG (27.0-31.0); MEAN CORPUSCULAR HGB CONC 35.3 g/dL (33.0-36.5); MONOCYTES # (AUTO) 1.3 X10'3 (0-0.9); MONOCYTES % (AUTO) 13.1 % (2-12); NEUTROPHILS # (AUTO) 7.5 X10'3 (1.8-7.7); NEUTROPHILS % (AUTO) 74.8 % (42-75); PLATELET COUNT 312 X10'3 (140-440); RED BLOOD COUNT 4.09 X10'6 (4.70-6.10); RED CELL DISTRIBUTION WIDTH 12.9 % (11.5-14.5); WHITE BLOOD COUNT 10.1 X10'3 (4.5-11.0)
[2023-04-04 06:31] VITALS: BP 141/82; PULSE 87; RESP 20; TEMP 98; O2SAT 65
[2023-04-04 06:31] LABS: ALANINE AMINOTRANSFERASE 25 U/L (12-78); ALBUMIN 2.3 G/DL (3.4-5.0); ALBUMIN/GLOBULIN RATIO 0.6 (1.1-1.5); ALKALINE PHOSPHATASE 65 IU/L (46-116); ANION GAP 6 (8-16); ASPARTATE AMINO TRANSFERASE 31 U/L (10-37); BILIRUBIN,TOTAL 0.5 MG/DL (0.1-1.0); BLOOD UREA NITROGEN 14 MG/DL (7-18); BUN/CREATININE RATIO 13.7 (10.0-20.0); CALCIUM 8.5 MG/DL (8.5-10.1); CHLORIDE 104 MMOL/L (99-107); CREATININE 1.02 MG/DL (0.60-1.10); GLUCOSE 94 MG/DL (70-104); POTASSIUM 4.3 MMOL/L (3.5-5.1); SODIUM 135 MMOL/L (135-145); TOTAL CARBON DIOXIDE 24.6 MMOL/L (24-32); TOTAL PROTEIN 6.3 G/DL (6.4-8.2); eCRCL 70 ML/MIN; eGFR 72 ML/MIN
[2023-04-04] MEDS: normal saline 1000ml 1,000 ML IV SCH ×2 (07:58→21:41)
[2023-04-04] MEDS: CefTRIAXone 2gm/D5W 50ml BAG 50 ML IV SCH (07:59)
[2023-04-04] MEDS: duloxetine 30mg CAPSULE.DR PO SCH (08:00)
[2023-04-04] MEDS: tamsulosin 0.4mg capsule PO SCH (08:00)
[2023-04-04 08:01] VITALS: RESP 18; O2SAT 96
[2023-04-04] MEDS: cyanocobalamin 500mcg tablet PO SCH (08:01)
[2023-04-04] MEDS: finasteride 5mg tablet PO SCH (08:01)
[2023-04-04] MEDS: betamethasone diprop. 0.05% ointment 15gm TP SCH (08:01)
[2023-04-04] MEDS: atorvastatin 20mg tablet PO SCH (08:01)
[2023-04-04 10:00] VITALS: BP 111/63; PULSE 74; RESP 18; TEMP 97.3; O2SAT 96
[2023-04-04] MEDS: polyethylene glycol 3350 17gm powd pack PO ONE ×2 (11:20→12:53)
[2023-04-04] MEDS ORDERED: CIPR-259 PO (11:46)
[2023-04-04] MEDS: acetaminophen 325mg tablet PO PRN ×2 (14:06→21:00)
[2023-04-04 18:30] VITALS: BP 152/86; PULSE 78; RESP 16; TEMP 98; O2SAT 95
[2023-04-04] MEDS: amLODIPine 5mg tablet PO SCH (21:00)
[2023-04-04] MEDS: enoxaparin 40mg/0.4ml syringe SQ SCH (21:01)
[2023-04-04] MEDS ORDERED: clobetasol propionate ointment 15gm TP SCH (21:13)
[2023-04-04 22:00] VITALS: BP 119/70; PULSE 66; RESP 16; TEMP 98.3; O2SAT 97
[2023-04-05 05:34] LABS: PROSTATE SPECIFIC AG, SERUM 0.1 ng/mL (0.0-4.0); PSA, FREE 0.04 ng/mL
[2023-04-05 06:00] VITALS: BP 124/71; PULSE 67; RESP 16; TEMP 98.4; O2SAT 97
[2023-04-05] MEDS ORDERED: POTA-206 PO (07:39)
[2023-04-05] MEDS ORDERED: MAGN200T8 PO (07:41)
[2023-04-05] MEDS: CefTRIAXone 2gm/D5W 50ml BAG 50 ML IV SCH (07:49)
[2023-04-05 07:50] VITALS: RESP 16; O2SAT 97
[2023-04-05] MEDS: duloxetine 30mg CAPSULE.DR PO SCH (07:50)
[2023-04-05] MEDS: cyanocobalamin 500mcg tablet PO SCH (07:50)
[2023-04-05] MEDS: finasteride 5mg tablet PO SCH (07:50)
[2023-04-05] MEDS: tamsulosin 0.4mg capsule PO SCH (07:50)
[2023-04-05] MEDS: atorvastatin 20mg tablet PO SCH (07:50)
[2023-04-05 10:00] VITALS: BP 133/87; PULSE 84; RESP 18; TEMP 98.9; O2SAT 97
[2023-04-05] MEDS: normal saline 1000ml 1,000 ML IV SCH (11:31)
== END 2023-04-05 12:40 | disposition home or self-care (01) | DRG 698 ==
LOC: ER 07:27 → ED HOLD 10:59 → EDBEDREQ 18:12 → ORTHO 4S 19:15
PROVIDERS: ADMIT Internal Medicine; ATTEND Internal Medicine
DX: T83.511A Infection and inflammatory reaction due to indwelling urethral catheter, initial encounter (principal); A41.9 Sepsis, unspecified organism; G93.41 Metabolic encephalopathy; N17.9 Acute kidney failure, unspecified; N39.0 Urinary tract infection, site not specified; E87.6 Hypokalemia; N40.1 Benign prostatic hyperplasia with lower urinary tract symptoms; R33.8 Other retention of urine; F03.90 Unspecified dementia, unspecified severity, without behavioral disturbance, psychotic disturbance, mood disturbance, and anxiety; F32.9 Major depressive disorder, single episode, unspecified; E78.5 Hyperlipidemia, unspecified; M19.90 Unspecified osteoarthritis, unspecified site; I10 Essential (primary) hypertension; F41.9 Anxiety disorder, unspecified; G89.29 Other chronic pain; F43.10 Post-traumatic stress disorder, unspecified; Z86.73 Personal history of transient ischemic attack (TIA), and cerebral infarction without residual deficits; Z87.440 Personal history of urinary (tract) infections; Z79.899 Other long term (current) drug therapy; Z87.891 Personal history of nicotine dependence
CPT/HCPCS: 36415; 70450; 71045; 80053; 80305; 81001; 81003; 82948; 83605; 83880; 84145; 84153; 84154; 84484; 85025; 87040; 87077; 87081; 87088; 87186; 93005; 97110; 97161; 97530; 99285; A4314; A4349; A5200; G0378; J0696; J1650; J2270; J3480; J7030